=== PATIENT | female | born 1955 | race Caucasian/White ===

== ENCOUNTER 2022-08-14 15:54 | Emergency (ER) | payer MEDICARE, BC ==
[~2022-08-14] VITALS: Ht 162.6 cm; Wt 75.5 kg
[~2022-08-14 15:54] MED LIST: SYN0.025T PO
[2022-08-14] MEDS ORDERED: TRAM50TA2 PO (17:49)
[2022-08-14] MEDS ORDERED: ORPH100T2 PO (17:49)
[2022-08-14 18:33] VITALS: BP 151/71
== END 2022-08-14 19:03 | disposition home or self-care (01) ==
LOC: ER 15:55
DX: M54.6 Pain in thoracic spine (principal); E03.9 Hypothyroidism, unspecified; Z88.2 Allergy status to sulfonamides; W19.XXXA Unspecified fall, initial encounter; Y93.89 Activity, other specified; Y92.89 Other specified places as the place of occurrence of the external cause; Y99.8 Other external cause status
CPT/HCPCS: 72128; 72131; 99284

== ENCOUNTER 2023-05-27 07:46 | Emergency (ER) | payer MEDICARE, BC ==
[~2023-05-27] VITALS: Ht 162.6 cm; Wt 77.3 kg
[~2023-05-27 07:46] MED LIST changes: +ORPH100T4 PO
[2023-05-27 07:57] VITALS: BP 141/58; PULSE 69; RESP 20; TEMP 97.8; O2SAT 98
== END 2023-05-27 09:56 | disposition home or self-care (01) ==
LOC: ER 07:46
DX: S52.591A Other fractures of lower end of right radius, initial encounter for closed fracture (principal); X58.XXXA Exposure to other specified factors, initial encounter; Y93.89 Activity, other specified; Y92.89 Other specified places as the place of occurrence of the external cause; Y99.8 Other external cause status; E03.9 Hypothyroidism, unspecified; Z88.2 Allergy status to sulfonamides; Z79.899 Other long term (current) drug therapy
CPT/HCPCS: 29125; 73110; 99284

== ENCOUNTER 2024-10-27 21:43 | Emergency (ER) | payer BC, MEDICARE ==
[~2024-10-27] VITALS: Ht 162.6 cm; Wt 75.5 kg
[2024-10-27 22:18] LABS: BASOPHILS % (AUTO) 0.6 % (0-1); EOSINOPHILS # (AUTO) 0.1 X10'3 (0-0.9); EOSINOPHILS % (AUTO) 2.4 % (0-6); HEMATOCRIT 39.5 % (35.0-45.0); LYMPHOCYTES # (AUTO) 2.1 X10'3 (1.1-4.8); LYMPHOCYTES % (AUTO) 33.8 % (21-51); MEAN CORPUSCULAR HEMOGLOBIN 27.3 PG (27.0-31.0); MEAN CORPUSCULAR HGB CONC 32.9 g/dL (33.0-36.5); MEAN CORPUSCULAR VOLUME 82.8 FL (78-98); MEAN PLATELET VOLUME 6.3 FL (7.4-10.4); MONOCYTES # (AUTO) 0.6 X10'3 (0-0.9); MONOCYTES % (AUTO) 9.3 % (2-12); NEUTROPHILS # (AUTO) 3.3 X10'3 (1.8-7.7); NEUTROPHILS % (AUTO) 53.9 % (42-75); PLATELET COUNT 293 X10'3 (140-440); RED BLOOD COUNT 4.77 X10'6 (4.20-5.60); RED CELL DISTRIBUTION WIDTH 15.7 % (11.5-14.5); WHITE BLOOD COUNT 6.1 X10'3 (4.5-11.0)
[2024-10-27 22:37] LABS: ALANINE AMINOTRANSFERASE 24 U/L (12-78); ALBUMIN/GLOBULIN RATIO 1.2 (1.1-1.5); ALKALINE PHOSPHATASE 123 IU/L (46-116); ANION GAP 8 (8-16); ASPARTATE AMINO TRANSFERASE 18 U/L (10-37); BILIRUBIN,TOTAL 0.4 MG/DL (0.1-1.0); BLOOD UREA NITROGEN 12 MG/DL (7-18); BUN/CREATININE RATIO 13.5 (10.0-20.0); CALCIUM 8.7 MG/DL (8.5-10.1); CHLORIDE 104 MMOL/L (99-107); CREATININE 0.89 MG/DL (0.40-0.90); GLUCOSE 107 MG/DL (70-104); LIPASE 37 U/L (16-77); POTASSIUM 3.9 MMOL/L (3.5-5.1); SODIUM 139 MMOL/L (135-145); TOTAL CARBON DIOXIDE 26.9 MMOL/L (24-32); TOTAL PROTEIN 7.3 G/DL (6.4-8.2); eCRCL 51 ML/MIN; eGFR 63 ML/MIN
[2024-10-27] MEDS: ondansetron 4mg rapidly disintigrating tab PO ONE (23:19)
[2024-10-27] MEDS: normal saline 1000ml 1,000 ML IV ONE (23:54)
[2024-10-27] MEDS: ketorolac trometh 15mg/ml vial 15 MG/ML ML IV ONE (23:55)
[2024-10-27] MEDS: fentaNYL/PF 50MCG/1 ML 2ML syringe IV ONE (23:55)
[2024-10-28 00:22] VITALS: BP 151/64; PULSE 69; RESP 17; TEMP 98.2; O2SAT 98
== END 2024-10-28 00:51 | disposition home or self-care (01) ==
LOC: ER 21:44
DX: K43.9 Ventral hernia without obstruction or gangrene (principal); E03.9 Hypothyroidism, unspecified; Z88.2 Allergy status to sulfonamides; Z98.84 Bariatric surgery status
CPT/HCPCS: 36415; 74176; 80053; 83690; 85025; 96361; 96374; 99285; J1885; J7030

== ENCOUNTER 2024-11-02 16:23 | Emergency (ER) | payer MEDICARE ==
[~2024-11-02] VITALS: Ht 162.6 cm; Wt 84.1 kg
[2024-11-02 16:27] VITALS: BP 142/67; PULSE 92; TEMP 97.9; O2SAT 99
[2024-11-02 16:55] VITALS: RESP 16
[2024-11-02] MEDS: ondansetron 4mg rapidly disintigrating tab PO ONE (17:31)
[2024-11-02] MEDS: fentaNYL/PF 50MCG/1 ML 2ML syringe IM ONE (17:45)
[2024-11-02] MEDS: fentaNYL/PF 50MCG/1 ML 2ML syringe ONE (17:53)
== END 2024-11-02 18:26 | disposition home or self-care (01) ==
LOC: ER 16:23
DX: K43.9 Ventral hernia without obstruction or gangrene (principal); E03.9 Hypothyroidism, unspecified; Z88.2 Allergy status to sulfonamides; Z98.84 Bariatric surgery status
CPT/HCPCS: 96372; 99283; J3010